=== PATIENT | male | born 1990 | race Two or more races ===

== ENCOUNTER 2017-02-24 11:04 | Inpatient (IN) | payer MEDICAID ==
[~2017-02-24] VITALS: Ht 162.6 cm; Wt 68.0 kg
[2017-02-24] VITALS (15 sets, daily range): BP systolic 102–147; BP diastolic 51–84
[2017-02-24 11:58] LABS: HEMATOCRIT 49.8 % (42.0-52.0); HEMOGLOBIN 16.2 G/DL (14.2-18.0); MEAN CORPUSCULAR VOLUME 94 FL (80-99); PLATELET COUNT 268 K/UL (150-450); RED BLOOD COUNT 5.28 M/UL (4.70-6.10); RED CELL DISTRIBUTION WIDTH 11.3 % (11.6-14.8); WHITE BLOOD COUNT 12.6 K/UL (4.8-10.8)
[2017-02-24 12:09] LABS: ALANINE AMINOTRANSFERASE 196 U/L (12-78); ALBUMIN 3.9 G/DL (3.4-5.0); ALBUMIN/GLOBULIN RATIO 0.8 (1.0-2.7); ALKALINE PHOSPHATASE 116 U/L (46-116); ANION GAP 11 mmol/L (5-15); ASPARTATE AMINO TRANSFERASE 97 U/L (15-37); BILIRUBIN,TOTAL 1.3 MG/DL (0.2-1.0); BLOOD UREA NITROGEN 7 mg/dL (7-18); CALCIUM 9.7 MG/DL (8.5-10.1); CARBON DIOXIDE 26 MMOL/L (21-32); CHLORIDE 101 MMOL/L (98-107); CREATININE 1.1 MG/DL (0.55-1.30); POTASSIUM 4.2 MMOL/L (3.5-5.1); SODIUM 138 MMOL/L (136-145)
[2017-02-24 12:15] LABS: BILIRUBIN,DIRECT 0.2 MG/DL (0.0-0.3)
[2017-02-24 12:50] LABS: APPEARANCE,URINE CLEAR; BILIRUBIN, URINE NEGATIVE (NEGATIVE); COLOR,URINE AMBER; GLUCOSE, URINE (UA) NEGATIVE (NEGATIVE); KETONES,URINE NEGATIVE (NEGATIVE); LEUKOCYTE ESTERASE ,URINE NEGATIVE (NEGATIVE); NITRITE,URINE NEGATIVE (NEGATIVE); PH,URINE 7 (4.5-8.0); PROTEIN,URINE NEGATIVE (NEGATIVE); UROBILINOGEN,URINE 4 MG/DL (0.0-1.0)
[2017-02-24] MEDS ORDERED: Zosyn 3.375gm/50ml Premix 50 ML IVPB SCH (14:00)
[2017-02-24] MEDS ORDERED: Zosyn 3.375gm inj ONE (14:01)
[2017-02-24] MEDS ORDERED: Piperacillin/Tazobactam 3.375 GM in NS 110 ML IVPB ONE (14:15)
[2017-02-24] MEDS ORDERED: NKM (14:21)
[2017-02-24] MEDS ORDERED: LR 1000ml 1,000 ML IVLG SCH ×2 (15:12→17:10)
[2017-02-24] MEDS ORDERED: Norco 7.5mg/325mg tab ORAL PRN ×2 (15:15→15:30)
[2017-02-24] MEDS ORDERED: Atropine Inj 1mg/10ml Syr IV PRN ×2 (15:15→15:35)
[2017-02-24] MEDS ORDERED: Hydromorphone 0.5mg/0.5ml inj IVP PRN ×3 (15:15→17:00)
[2017-02-24] MEDS ORDERED: Metoclopramide 10mg/2ml Inj IVP PRN ×2 (15:15→15:30)
[2017-02-24] MEDS ORDERED: oxyCODONE HCL/Acetaminophen 5/325mg ORAL PRN ×2 (15:15→15:30)
[2017-02-24] MEDS ORDERED: Midazolam 2mg/2ml Inj IVP PRN ×2 (15:15→15:45)
[2017-02-24] MEDS ORDERED: LORazepam Inj 2mg/ml 1ml IV PRN ×3 (15:15→20:45)
[2017-02-24] MEDS ORDERED: Acetaminophen (Non formulary) 100 ML IV ONE ×3 (15:15→15:45)
[2017-02-24] MEDS ORDERED: DiphenhydrAMINE 50mg/ml Inj IVP PRN ×3 (15:15→17:00)
[2017-02-24] MEDS ORDERED: Ketorolac 30mg Inj IV PRN ×3 (15:15→17:00)
[2017-02-24] MEDS ORDERED: fentaNYL 100 mcg/2 mL IV PRN ×2 (15:15→15:30)
[2017-02-24] MEDS ORDERED: Ketorolac 60mg Inj IV PRN ×2 (15:15→15:30)
[2017-02-24] MEDS ORDERED: Norco 5mg/325mg tab ORAL PRN ×3 (15:15→17:00)
[2017-02-24] MEDS ORDERED: Bupivacaine w/Epi 0.75% 30ml Vial INJ ONE (15:19)
--- NOTE | 2017-02-24 15:27 | Consultation ---
History of Present Illness General Date patient seen: Feb 24, 2017 Chief Complaint: Abdominal Pain Present Illness HPI 26 year old otherwise healthy male presented to ED complaining of worsening RLQ abdominal pain x 3 days. as per patient, he first noted some vague lower abdominal pain 3 days ago. the next morning pain had radiated to RLQ and has been there since. pain cramping in nature with mild radiation to right flank. as pain progressed he came to ED for evaluation. took ibuprofen without significant improvement. began to have nausea and emesis this morning. no prior episodes. in ED had CT which was consistent with dilated inflamed non perforated appendicitis. surgery called. Allergies: Coded Allergies: No Known Allergies (Unverified , 02/24/17) Medication History Scheduled No Known Medications* (NKM - No Known Medications*), 0 ., (Reported) Patient History History Provided By: Patient Healthcare decision maker Resuscitation status Advanced Directive on File Past Medical/Surgical History Past Medical/Surgical History: (1) Acute appendicitis with localized peritonitis (2) Abdominal pain Review of Systems All Other Systems: negative except mentioned in HPI Physical Exam General Appearance: no apparent distress, alert Lines, tubes and drains: peripheral HEENT: normocephalic, mucous membranes moist, PERRL Neck: normal inspection Respiratory/Chest: normal breath sounds, no respiratory distress, no accessory muscle use Cardiovascular/Chest: normal peripheral pulses, normal rate, regular rhythm Abdomen: other - soft, non distended, tender in RLQ with rebound and guarding, focal RLQ peritonitis Extremities: normal inspection Skin Exam: normal pigmentation Neurologic: alert, oriented x 3 Last 24 Hour Vital Signs Date Time Temp Pulse Resp B/P (MAP) Pulse Ox O2 Delivery O2 Flow Rate FiO2 02/24/17 15:20 98.4 72 17 118/68 99 Room Air 02/24/17 15:07 72 17 118/68 99 Room Air 02/24/17 13:00 98.4 80 17 119/72 99 Room Air 02/24/17 11:52 98.4 88 18 121/73 99 Room Air 02/24/17 11:13 98.4 88 18 121/73 99 Room Air Laboratory Tests Test 02/24/17 11:23 02/24/17 11:30 Urine Color Lor Urine Appearance Clear Urine pH 7 (4.5-8.0) Urine Specific [place] 1.010 (1.005-1.035) Urine Protein Negative (NEGATIVE) Urine Glucose (UA) Negative (NEGATIVE) Urine Ketones Negative (NEGATIVE) Urine Occult Blood Negative (NEGATIVE) Urine Nitrite Negative (NEGATIVE) Urine Bilirubin Negative (NEGATIVE) Urine Ictotest Negative Urine Urobilinogen 4 MG/DL (0.0-1.0) H Urine Leukocyte Esterase Negative (NEGATIVE) White Blood Count 12.6 K/UL (4.8-10.8) H Red Blood Count 5.28 M/UL (4.70-6.10) Hemoglobin 16.2 G/DL (14.2-18.0) Hematocrit 49.8 % (42.0-52.0) Mean Corpuscular Volume 94 FL (80-99) Mean Corpuscular Hemoglobin 30.7 PG (27.0-31.0) Mean Corpuscular Hemoglobin Concent 32.5 G/DL (32.0-36.0) Red Cell Distribution Width 11.3 % (11.6-14.8) L Platelet Count 268 K/UL (150-450) Mean Platelet Volume 7.0 FL (6.5-10.1) Neutrophils (%) (Auto) % (45.0-75.0) Lymphocytes (%) (Auto) % (20.0-45.0) Monocytes (%) (Auto) % (1.0-10.0) Eosinophils (%) (Auto) % (0.0-3.0) Basophils (%) (Auto) % (0.0-2.0) Differential Total Cells Counted 100 Neutrophils % (Manual) 89 % (45-75) H Lymphocytes % (Manual) 6 % (20-45) L Monocytes % (Manual) 5 % (1-10) Eosinophils % (Manual) 0 % (0-3) Basophils % (Manual) 0 % (0-2) Band Neutrophils 0 % (0-8) Platelet Estimate Adequate Platelet Morphology Normal Prothrombin Time 10.1 SEC (9.30-11.50) Prothromb Time International Ratio 1.0 (0.9-1.1) Activated Partial Thromboplast Time 18 SEC (23-33) L Sodium Level 138 MMOL/L (136-145) Potassium Level 4.2 MMOL/L (3.5-5.1) Chloride Level 101 MMOL/L (98-107) Carbon Dioxide Level 26 MMOL/L (21-32) Anion Gap 11 mmol/L (5-15) Blood Urea Nitrogen 7 mg/dL (7-18) Creatinine 1.1 MG/DL (0.55-1.30) Estimat Glomerular Filtration Rate > 60 mL/min (>60) Glucose Level 175 MG/DL (74-106) H Calcium Level 9.7 MG/DL (8.5-10.1) Total Bilirubin 1.3 MG/DL (0.2-1.0) H Direct Bilirubin 0.2 MG/DL (0.0-0.3) Aspartate Amino Transf (AST/SGOT) 97 U/L (15-37) H Alanine Aminotransferase (ALT/SGPT) 196 U/L (12-78) H Alkaline Phosphatase 116 U/L (46-116) Total Protein 8.6 G/DL (6.4-8.2) H Albumin 3.9 G/DL (3.4-5.0) Globulin 4.7 g/dL Albumin/Globulin Ratio 0.8 (1.0-2.7) L Lipase 88 U/L (73-393) Height (Feet): 5 Height (Inches): 4.00 Weight (Pounds): 150 Medications Current Medications Medications (Trade) Dose Ordered Sig/Madai Route PRN Reason Start Time Stop Time Status Last Admin Dose Admin Acetaminophen 100 ml @ 400 mls/hr NOW ONCE IV 02/24/17 15:15 02/24/17 15:29 UNV Acetaminophen/ Hydrocodone Bitart ([place] 5/325) 1 tab Q1H PRN ORAL Mild Pain (Pain Scale 1-3) 02/24/17 15:15 UNV Acetaminophen/ Hydrocodone Bitart ([place] 7.5/325) 1 ea Q1H PRN ORAL Moderate Pain (Pain Scale 4-6) 02/24/17 15:15 UNV Al Hydroxide/Mg Hydroxide (Mylanta) 15 ml Q1H PRN ORAL gi upset 02/24/17 15:15 UNV Atropine Sulfate (Atropine) 0.5 mg Q5M PRN IV HR <40 02/24/17 15:15 UNV Diphenhydramine HCl (Benadryl) 25 mg Q15M PRN IVP Itching 02/24/17 15:15 UNV Fentanyl Citrate (Sublimaze 100 mcg/2 mL) 25 mcg Q10M PRN IV Moderate Pain (Pain Scale 4-6) 02/24/17 15:15 UNV Hydralazine HCl (Apresoline) 5 mg Q30M PRN IV SBP>160 / DBP>90 02/24/17 15:15 UNV Hydromorphone HCl (Dilaudid) 0.5 mg Q15M PRN IVP Severe Pain (Pain Scale 7-10) 02/24/17 15:15 UNV Ketorolac Tromethamine (Toradol 30mg) 15 mg Q1H PRN IV Moderate Breakthru Pain (5-7) 02/24/17 15:15 UNV Ketorolac Tromethamine (Toradol) 60 mg Q1H PRN IV Severe Breakthru Pain (>7) 02/24/17 15:15 UNV Lactated Ringer's 1,000 ml @ 10 mls/hr Q24H IVLG 02/24/17 15:12 02/24/17 17:11 UNV Lorazepam (Ativan 2mg/ml 1ml) 1 mg Q15M PRN IV For Anxiety 02/24/17 15:15 UNV Metoclopramide HCl (Reglan) 10 mg Q1H PRN IVP Nausea & Vomiting 02/24/17 15:15 UNV Midazolam HCl (Versed 2mg/2ml vial) 1 mg Q15M PRN IVP For Anxiety 02/24/17 15:15 UNV Ondansetron HCl (Zofran) 4 mg Q1H PRN IVP Nausea & Vomiting 02/24/17 15:15 UNV Oxycodone/ Acetaminophen (Percocet 5-325) 1 tab Q1H PRN ORAL Severe Pain (Pain Scale 7-10) 02/24/17 15:15 UNV Sodium Chloride 1,000 ml @ 100 mls/hr Q10H ONCE IV 02/24/17 11:45 02/24/17 21:44 02/24/17 11:52 Assessment/Plan Problem List: (1) Acute appendicitis with localized peritonitis Assessment & Plan: 26M with acute appendicitis. Afebrile, HD stable, leukocytosis of 12k, CT with dilated inflamed appendix but no signs of perforation, exam with focal RLQ peritonitis. -To OR for lap vs open appendectomy NPO, IV fluids, IV Abx ICD Codes: K35.3 - Acute appendicitis with localized peritonitis SNOMED: [id number] Status: stable WiltonoramelanieFarzana thomasya Feb 24, 2017 15:27
--- NOTE | 2017-02-24 15:28 | Pre-Procedure Note/Attestation ---
Pre-Procedure Note/Attestation Complete Prior to Procedure Planned Procedure: not applicable Procedure Narrative: acute appendicitis Indications for Procedure Pre-Operative Diagnosis: laparoscopic appendectomy, possible open Attestation I attest that I discussed the nature of the procedure; its benefits; risks and complications; and alternatives (and the risks and benefits of such alternatives ), prior to the procedure, with the patient (or the patient's legal office machines sales representative). I attest that, if there was a reasonable possibility of needing a blood transfusion, the patient (or the patient's legal office machines sales representative) was given the [facility] standardized written summary, pursuant to the Leo Jeff Blood Safety Act ([place] Health and Safety Code # 1645, as amended). I attest that I re-evaluated the patient just prior to the surgery and that there has been no change in the patient's H&P, except as documented below: Aren Griffin Feb 24, 2017 15:28
--- NOTE | 2017-02-24 15:28 | Pre-Procedure Note/Attestation ---
Pre-Procedure Note/Attestation Complete Prior to Procedure Planned Procedure: not applicable Procedure Narrative: acute appendicitis Indications for Procedure Pre-Operative Diagnosis: laparoscopic appendectomy, possible open Attestation I attest that I discussed the nature of the procedure; its benefits; risks and complications; and alternatives (and the risks and benefits of such alternatives ), prior to the procedure, with the patient (or the patient's legal branch customer service representative). I attest that, if there was a reasonable possibility of needing a blood transfusion, the patient (or the patient's legal branch customer service representative) was given the [facility] standardized written summary, pursuant to the Leo Jeff Blood Safety Act ([place] Health and Safety Code # 1645, as amended). I attest that I re-evaluated the patient just prior to the surgery and that there has been no change in the patient's H&P, except as documented below: Aren Griffin Feb 24, 2017 15:28
--- NOTE | 2017-02-24 15:28 | Pre-Procedure Note/Attestation ---
Pre-Procedure Note/Attestation Complete Prior to Procedure Planned Procedure: not applicable Procedure Narrative: acute appendicitis Indications for Procedure Pre-Operative Diagnosis: laparoscopic appendectomy, possible open Attestation I attest that I discussed the nature of the procedure; its benefits; risks and complications; and alternatives (and the risks and benefits of such alternatives ), prior to the procedure, with the patient (or the patient's legal construction representative). I attest that, if there was a reasonable possibility of needing a blood transfusion, the patient (or the patient's legal construction representative) was given the [facility] standardized written summary, pursuant to the Leo Jeff Blood Safety Act ([place] Health and Safety Code # 1645, as amended). I attest that I re-evaluated the patient just prior to the surgery and that there has been no change in the patient's H&P, except as documented below: Aren Grififn Feb 24, 2017 15:28
[2017-02-24] MEDS ORDERED: Lidocaine 1% MPF 10mg/ml 5ml ONE (15:30)
[2017-02-24] MEDS ORDERED: Sterile Water Irrig 1000ml IRRIG ONE (15:30)
[2017-02-24] MEDS ORDERED: Glycopyrrolate 0.2mg/ml 1ml Vial ONE (15:30)
[2017-02-24] MEDS ORDERED: Zemuron 50mg/5ml Inj IV ONE (15:30)
[2017-02-24] MEDS ORDERED: LR 1000ml ONE (15:30)
[2017-02-24] MEDS ORDERED: Neostigmine 1mg/ml 10ml Inj ONE (15:30)
[2017-02-24] MEDS ORDERED: fentaNYL 100 mcg/2 mL IV ONE (15:30)
[2017-02-24] MEDS ORDERED: Dexamethasone 4mg/ml vial ONE (15:30)
[2017-02-24] MEDS ORDERED: NS Irrig 1000ml ONE (15:30)
[2017-02-24] MEDS ORDERED: Propofol 200mg/20ml IV ONE (15:30)
[2017-02-24] MEDS ORDERED: Alfentanil 2ml Inj ONE (15:30)
--- NOTE | 2017-02-24 15:48 | Anethesia Preoperative Eval ---
Anesthesia Pre-op PMH/ROS General Date of Evaluation: Feb 24, 2017 Anesthesiologist: Shira ASA Score: ASA 1 - Emergency Mallampati Score Class I : Soft palate, uvula, fauces, pillars visible Class II: Soft palate, uvula, fauces visible Class III: Soft palate, base of uvula visible Class IV: Only hard plate visible Mallampati Classification: Class I Surgeon: Gaby Diagnosis: Acute Appendicitis Surgical Procedure: Laparoscopic Appendectomy Anesthesia History: none Social History: alcohol use Family History: no anesthesia problems Allergies: Coded Allergies: No Known Allergies (Unverified , 02/24/17) Medications: see eMAR Anesthesia Pre-op Phys. Exam Physician Exam Last Vital Signs Date Time Temp Pulse Resp B/P (MAP) Pulse Ox O2 Delivery O2 Flow Rate FiO2 02/24/17 15:20 98.4 72 17 118/68 99 Room Air Constitutional: NAD Neurologic: CN 2-12 intact Cardiovascular: RRR Respiratory: CTA Gastrointestinal: S/NT/ND Airway Exam Mallampati Score: Class I MO: full ROM: full Teeth: intact Anesthesia Pre-op A/P Labs Hematology Test 02/24/17 11:30 White Blood Count 12.6 K/UL (4.8-10.8) H Red Blood Count 5.28 M/UL (4.70-6.10) Hemoglobin 16.2 G/DL (14.2-18.0) Hematocrit 49.8 % (42.0-52.0) Mean Corpuscular Volume 94 FL (80-99) Mean Corpuscular Hemoglobin 30.7 PG (27.0-31.0) Mean Corpuscular Hemoglobin Concent 32.5 G/DL (32.0-36.0) Red Cell Distribution Width 11.3 % (11.6-14.8) L Platelet Count 268 K/UL (150-450) Mean Platelet Volume 7.0 FL (6.5-10.1) Neutrophils (%) (Auto) % (45.0-75.0) Lymphocytes (%) (Auto) % (20.0-45.0) Monocytes (%) (Auto) % (1.0-10.0) Eosinophils (%) (Auto) % (0.0-3.0) Basophils (%) (Auto) % (0.0-2.0) Differential Total Cells Counted 100 Neutrophils % (Manual) 89 % (45-75) H Lymphocytes % (Manual) 6 % (20-45) L Monocytes % (Manual) 5 % (1-10) Eosinophils % (Manual) 0 % (0-3) Basophils % (Manual) 0 % (0-2) Band Neutrophils 0 % (0-8) Platelet Estimate Adequate Platelet Morphology Normal Coagulation Test 02/24/17 11:30 Prothrombin Time 10.1 SEC (9.30-11.50) Prothromb Time International Ratio 1.0 (0.9-1.1) Activated Partial Thromboplast Time 18 SEC (23-33) L Chemistry Test 02/24/17 11:30 Sodium Level 138 MMOL/L (136-145) Potassium Level 4.2 MMOL/L (3.5-5.1) Chloride Level 101 MMOL/L (98-107) Carbon Dioxide Level 26 MMOL/L (21-32) Anion Gap 11 mmol/L (5-15) Blood Urea Nitrogen 7 mg/dL (7-18) Creatinine 1.1 MG/DL (0.55-1.30) Estimat Glomerular Filtration Rate > 60 mL/min (>60) Glucose Level 175 MG/DL (74-106) H Calcium Level 9.7 MG/DL (8.5-10.1) Total Bilirubin 1.3 MG/DL (0.2-1.0) H Direct Bilirubin 0.2 MG/DL (0.0-0.3) Aspartate Amino Transf (AST/SGOT) 97 U/L (15-37) H Alanine Aminotransferase (ALT/SGPT) 196 U/L (12-78) H Alkaline Phosphatase 116 U/L (46-116) Total Protein 8.6 G/DL (6.4-8.2) H Albumin 3.9 G/DL (3.4-5.0) Globulin 4.7 g/dL Albumin/Globulin Ratio 0.8 (1.0-2.7) L Lipase 88 U/L (73-393) Risk Assessment & Plan Assessment: ASA 1E Plan: GA, BIS, Glidescope Status Change Before Surgery: No Pre-Antibiotics Dru Gram Ancef IV Given Within 1 Hr of Incision: Yes Time Given: 15:53 Oleksandr Silva MD Feb 24, 2017 15:48
[2017-02-24] MEDS ORDERED: NS Irrig 1000ml IRRIG ONE (16:01)
--- NOTE | 2017-02-24 16:01 | Emergency Room Report ---
History of Present Illness General Chief Complaint: Abdominal Pain Source: Patient Present Illness HPI Patient's 26-year-old male who presented after increased abdominal pain and vomiting for the past several days. Patient had gradual onset of symptoms. He had worsening pain today. Patient had subjective fever and chills. He did having increased pain with movement. He reports some recent alcohol use. Patient states his last meal was approximately immediately prior. Allergies: Coded Allergies: No Known Allergies (Unverified , 02/24/17) Patient History Reviewed Nursing Documentation: PMH: Agreed, PSxH: Agreed Nursing Documentation-PMH Past Medical History: No Stated History Review of Systems All Other Systems: negative except mentioned in HPI Physical Exam Vital Signs Date Time Temp Pulse Resp B/P (MAP) Pulse Ox O2 Delivery O2 Flow Rate FiO2 02/24/17 11:13 98.4 88 18 121/73 99 Room Air Sp02 EP Interpretation: reviewed, normal General Appearance: normal inspection, well appearing, no apparent distress, alert, GCS 15 Head: atraumatic ENT: normal ENT inspection, hearing grossly normal, normal voice Neck: normal inspection, full range of motion, supple, no bony tend Respiratory: normal inspection, lungs clear, normal breath sounds, no respiratory distress, no retraction, no wheezing Cardiovascular #1: regular rate, rhythm, no edema Gastrointestinal: soft, no guarding, tenderness - guarding rebound Genitourinary: no CVA tenderness Musculoskeletal: normal inspection, back normal, normal range of motion Neurologic: normal inspection, alert, oriented x3, responsive, product test specialist III-XII nml as tested, speech normal Psychiatric: normal inspection, judgement/insight normal, mood/affect normal Skin: normal inspection, normal color, no rash Medical Decision Making Diagnostic Impression: Primary Impression: Acute appendicitis with localized peritonitis ER Course Patient presented for abdominal pain. Differential diagnoses included ischemic bowel, appendicitis, perforated viscus, abdominal aortic aneurysm, inferior myocardial infarction, viral gastroenteritis. Because of complexity of patient' s case laboratory testing and imaging studies were ordered. The patient was given IV antibiotics as well as IV antiemetics. A CT imaging of the abdomen pelvis showed a radiology showed evidence of acute appendicitis. The patient was discussed with Dr. Griffin for surgical consult. Dr. Mane Rudolph was contacted for Dr. Bagley for inpatient managment. Labs Test 02/24/17 11:23 11/4/17 11:30 Urine Color Lor Urine Appearance Clear Urine pH 7 (4.5-8.0) Urine Specific [place] 1.010 (1.005-1.035) Urine Protein Negative (NEGATIVE) Urine Glucose (UA) Negative (NEGATIVE) Urine Ketones Negative (NEGATIVE) Urine Occult Blood Negative (NEGATIVE) Urine Nitrite Negative (NEGATIVE) Urine Bilirubin Negative (NEGATIVE) Urine Ictotest Negative Urine Urobilinogen 4 MG/DL (0.0-1.0) Urine Leukocyte Esterase Negative (NEGATIVE) White Blood Count 12.6 K/UL (4.8-10.8) Red Blood Count 5.28 M/UL (4.70-6.10) Hemoglobin 16.2 G/DL (14.2-18.0) Hematocrit 49.8 % (42.0-52.0) Mean Corpuscular Volume 94 FL (80-99) Mean Corpuscular Hemoglobin 30.7 PG (27.0-31.0) Mean Corpuscular Hemoglobin Concent 32.5 G/DL (32.0-36.0) Red Cell Distribution Width 11.3 % (11.6-14.8) Platelet Count 268 K/UL (150-450) Mean Platelet Volume 7.0 FL (6.5-10.1) Neutrophils (%) (Auto) % (45.0-75.0) Lymphocytes (%) (Auto) % (20.0-45.0) Monocytes (%) (Auto) % (1.0-10.0) Eosinophils (%) (Auto) % (0.0-3.0) Basophils (%) (Auto) % (0.0-2.0) Differential Total Cells Counted 100 Neutrophils % (Manual) 89 % (45-75) Lymphocytes % (Manual) 6 % (20-45) Monocytes % (Manual) 5 % (1-10) Eosinophils % (Manual) 0 % (0-3) Basophils % (Manual) 0 % (0-2) Band Neutrophils 0 % (0-8) Platelet Estimate Adequate Platelet Morphology Normal Prothrombin Time 10.1 SEC (9.30-11.50) Prothromb Time International Ratio 1.0 (0.9-1.1) Activated Partial Thromboplast Time 18 SEC (23-33) Sodium Level 138 MMOL/L (136-145) Potassium Level 4.2 MMOL/L (3.5-5.1) Chloride Level 101 MMOL/L (98-107) Carbon Dioxide Level 26 MMOL/L (21-32) Anion Gap 11 mmol/L (5-15) Blood Urea Nitrogen 7 mg/dL (7-18) Creatinine 1.1 MG/DL (0.55-1.30) Estimat Glomerular Filtration Rate > 60 mL/min (>60) Glucose Level 175 MG/DL (74-106) Calcium Level 9.7 MG/DL (8.5-10.1) Total Bilirubin 1.3 MG/DL (0.2-1.0) Direct Bilirubin 0.2 MG/DL (0.0-0.3) Aspartate Amino Transf (AST/SGOT) 97 U/L (15-37) Alanine Aminotransferase (ALT/SGPT) 196 U/L (12-78) Alkaline Phosphatase 116 U/L (46-116) Total Protein 8.6 G/DL (6.4-8.2) Albumin 3.9 G/DL (3.4-5.0) Globulin 4.7 g/dL Albumin/Globulin Ratio 0.8 (1.0-2.7) Lipase 88 U/L (73-393) Last Vital Signs Date Time Temp Pulse Resp B/P (MAP) Pulse Ox O2 Delivery O2 Flow Rate FiO2 02/24/17 15:20 98.4 72 17 118/68 99 Room Air Status: unchanged Disposition: ADMITTED INPATIENT Condition: Serious Referrals: NOT CHOSEN IPA/,REFERRING (PCP) Dereje Campbell Feb 24, 2017 16:01
--- NOTE | 2017-02-24 16:19 | Immediate Post-Op Evaluation ---
Immediate Post-Op Evalulation Immediate Post-Op Evalulation Procedure: Laparoscopic Appendectomy Date of Evaluation: Feb 24, 2017 Time of Evaluation: 17:02 IV Fluids: 600 LR Blood Products: 0 Estimated Blood Loss: 25 Urinary Output: 0 Blood Pressure Systolic: 147 Blood Pressure Diastolic: 68 Pulse Rate: 108 Respiratory Rate: 18 O2 Sat by Pulse Oximetry: 96 - Pt Desated to 20's, Mask vent 120 mcg Narcan to RX Temperature (Fahrenheit): 100 Pain Score (1-10): 3 Nausea: No Vomiting: No Complications Desat to 20's, Mask vent and 120 mcg Narcan to rx, CXR taken, Lungs were somewhat congested. RA sat was 97 preop Patient Status: awake, reacts, patent, extubated, none Hydration Status: adequate Dru Gram Ancef IV Given Within 1 Hr of Incision: Yes Time Given: 15:53 Oleksandr Silva MD Feb 24, 2017 16:19
--- NOTE | 2017-02-24 16:20 | 48 Hour Post Anesthesia Eval ---
Post Anesthesia Evaluation Procedure: Laparoscopic Appendectomy Date of Evaluation: Feb 24, 2017 Time of Evaluation: 19:22 Blood Pressure Systolic: 112 0: 66 Pulse Rate: 92 Respiratory Rate: 18 Temperature (Fahrenheit): 98.7 O2 Sat by Pulse Oximetry: 97 Airway: patent Nausea: No Vomiting: No Pain Intensity: 3 Hydration Status: adequate Cardiopulmonary Status: Stable Mental Status/LOC: patient returned to baseline Follow-up Care/Observations: 0 Post-Anesthesia Complications: 0 Follow-up care needed: N/A Oleksandr Silva MD Feb 24, 2017 16:20
--- NOTE | 2017-02-24 16:53 | Brief Operative Note ---
Immediate Post Operative Note Operative Note Pre-op Diagnosis: laparoscopic appendectomy, possible open Procedure: laparoscopic appendectomy Post-op Diagnosis: acute appendicitis Post-op Diagnosis: same as pre-op Findings: consistent w/pre-op dx studies Surgeon: kyle Anesthesiologist: Saad Anesthesia: general Specimen: yes Complications: none Condition: stable Fluids: see records Estimated Blood Loss: minimal Drains: none Implant(s) used?: No Aren Griffin Feb 24, 2017 16:53
[2017-02-24] MEDS ORDERED: Milk of Magnesia 30ml Ud ORAL PRN (17:00)
[2017-02-24] MEDS ORDERED: Norco 10mg/325mg tab ORAL PRN (17:00)
[2017-02-24] MEDS ORDERED: HYDROmorphone 1mg/ml Carpuject IVP PRN (17:00)
--- NOTE | 2017-02-24 18:45 | Operative Note - Dictated ---
DATE OF OPERATION: 02/24/2017 PREOPERATIVE DIAGNOSIS: Acute appendicitis. POSTOPERATIVE DIAGNOSIS: Acute appendicitis. OPERATION PERFORMED: Laparoscopic appendectomy. ATTENDING SURGEON: Aren Griffin M.D. ANESTHESIOLOGIST: Oleksandr Silva M.D. 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 ESTIMATED BLOOD LOSS: Minimal. IV FLUIDS: Please see anesthesia records. SPECIMENS: Appendix sent to pathology for review. COMPLICATIONS: None. WOUND CLASSIFICATION: Class 2. ANTIBIOTICS: Ancef IV given one hour prior to cut time. COUNTS: Sponge and needle count correct x2. DRAINS: None. INDICATIONS FOR PROCEDURE: This is a 26-year-old male, who presented to the emergency department at [facility] complaining of worsening right lower quadrant abdominal pain for three days. The patient states that CT and pelvis was performed and consistent with acute and perforated appendicitis. On examination, the patient had focal right lower quadrant tenderness/peritonitis. The patient was afebrile and hemodynamically stable with leukocytosis of 12,000. Surgery was indicated. Risks, benefits, and alternatives were discussed with the patient in detail prior to entering the operating room. Consent was signed and in chart. OPERATIVE NOTE: The patient was taken to the operating room and placed on the operating table in supine position with bilateral arms out. All bony prominences were well padded with gel pads. SCDs were placed. No Ackerman catheter was inserted given the patient had voided just prior to entering the operating suite. Intravenous Ancef was given one hour prior to cut time. General anesthesia was induced and the patient was intubated. The abdomen was then clipped, prepped, and draped in standard surgical fashion. We began by making an umbilical incision using a fresh #11 scalpel. Incision was carried down to the fascia, which was elevated and incised. Entry into the abdomen was obtained using the open Mainor technique without complication. The Mainor trocar was inserted and the abdomen was insufflated with 12 to 15 mmHg. The patient tolerated the insufflation well. The laparoscope was entered and the abdomen was inspected. Upon initial inspection, the right lobe of the liver was noted to have some blunted edges and micronodular changes. The left lower quadrant was otherwise normal and in the right lower quadrant, there was omentum covering the intestines. The patient was placed in the Trendelenburg position with the left side down. Secondary trocars were placed under direct visualization in the following locations, first beginning with a left lower quadrant 12 mm trocar followed by a 5 mm suprapubic trocar. The trocars were inserted under direct visualization without complication. The laparoscopic graspers were then used to locate and identify the appendix. The appendix was located and identified in the right lower quadrant with some adhesive processes around it and a hemorrhagic tip. No perforation or localized abscess was noted. The base of the appendix was identified. The base of the appendix was elevated and directed towards the pelvis giving us a good view of the base the appendix, cecum, and the surrounding structures. A laparoscopic Cindi dissector was used to make a window at the base of the appendix. A laparoscopic linear stapler was then used to divide the appendix at the base without complication. A second laparoscopic linear stapler with a vascular load was then used to divide the mesoappendix. Once this was completed successfully, the appendix was then freed and placed in endoscopic retrieval bag and removed through the left lower quadrant port. The abdomen was then reinspected and any fluid was suctioned with minimal irrigation out of the right lower quadrant and pelvis. The base of the appendix staple line and the mesoappendix staple line were evaluated and noted to be hemostatic and satisfactory. At this time, we began the conclusion of our procedure. Secondary trocars were removed under direct visualization without complication. The abdomen was desufflated and Mainor trocar was removed. The umbilical and left lower quadrant port site fascias were closed using a #0 Vicryl suture. The remaining skin incisions were closed using a 4-0 Monocryl subcuticular suture. The wounds were irrigated and cleansed. Steri-Strips and dressings were then placed. The patient was then extubated and taken to the postanesthetic care unit in stable condition. Aren Griffin M.D. DR: KEVIN JOB#: [id number] CC: RICHIE
[2017-02-24] MEDS ORDERED: LORazepam Inj 2mg/ml 1ml IM PRN (20:45)
[2017-02-24] MEDS: Docusate 100mg cap ORAL SCH (21:00)
[2017-02-25] VITALS: BP 103/66
[2017-02-25] MEDS: ceFAZolin sod 2 GM in D5W 55 ML IV SCH ×2 (01:28→08:04)
[2017-02-25 04:00] VITALS: BP 114/62
[2017-02-25 08:11] VITALS: BP 112/61
[2017-02-25] MEDS: Docusate 100mg cap ORAL SCH (08:26)
[2017-02-25] MEDS ORDERED: Heparin 5000 units/ml inj SUBQ SCH (09:00)
[2017-02-25] MEDS ORDERED: Tubing IV Secondary IV ONE (09:15)
[2017-02-25] MEDS ORDERED: NS 275ml ONE (09:15)
--- NOTE | 2017-02-25 11:09 | Diagnostic Imaging Report ---
Indication: Cough Technique: CHEST 1 VIEW Comparison:None Findings: The heart is normal in size. There is bilateral perihilar airspace disease. No pleural fluid. The bones are unremarkable. Impression: Findings consistent with pulmonary edema or pneumonia bilaterally. The above report is concordant with preliminary reading by [employer] .
[2017-02-25 11:10] LABS: BASOPHILS % (AUTO) 0.3 % (0.0-2.0); EOSINOPHILS % (AUTO) 0.1 % (0.0-3.0); HEMATOCRIT 39.1 % (42.0-52.0); HEMOGLOBIN 13.2 G/DL (14.2-18.0); LYMPHOCYTES % (AUTO) 10.4 % (20.0-45.0); MEAN CORPUSCULAR VOLUME 94 FL (80-99); MONOCYTES % (AUTO) 10.7 % (1.0-10.0); NEUTROPHILS % (AUTO) 78.5 % (45.0-75.0); PLATELET COUNT 212 K/UL (150-450); RED BLOOD COUNT 4.17 M/UL (4.70-6.10); RED CELL DISTRIBUTION WIDTH 11.3 % (11.6-14.8); WHITE BLOOD COUNT 12.8 K/UL (4.8-10.8)
--- NOTE | 2017-02-25 11:30 | General Progress Note ---
Progress Note Progress Note Surgery: patient seen and examined at bedside. no acute events. doing well since surgery. states that abdominal pain has resolved and that he just has some minor incisional pain mainly around the umbilicus. no n/v/f/c. tolerating oral diet. ambulatory. had small BM this morning. passing flatus. Afebrile, HD stable, exam benign, recovering. abdomen soft, nt/nd, bs+, incisions c/d/i. -okay to d/c from surgical standpoint -diet as tolerated -ambulate and activity as tolerated. no heavy lifting > 15lbs for 4 weeks -Rx written -follow up with me in 1 week call [phone] for appointment -okay to shower. okay to remove dressings tomorrow. leave steristrips in place until next week. Aren Griffin Feb 25, 2017 11:30
--- NOTE | 2017-02-25 11:30 | General Progress Note ---
Progress Note Progress Note Surgery: patient seen and examined at bedside. no acute events. doing well since surgery. states that abdominal pain has resolved and that he just has some minor incisional pain mainly around the umbilicus. no n/v/f/c. tolerating oral diet. ambulatory. had small BM this morning. passing flatus. Afebrile, HD stable, exam benign, recovering. abdomen soft, nt/nd, bs+, incisions c/d/i. -okay to d/c from surgical standpoint -diet as tolerated -ambulate and activity as tolerated. no heavy lifting > 15lbs for 4 weeks -Rx written -follow up with me in 1 week call [phone] for appointment -okay to shower. okay to remove dressings tomorrow. leave steristrips in place until next week. Aren Griffin Feb 25, 2017 11:30
--- NOTE | 2017-02-25 11:30 | General Progress Note ---
Progress Note Progress Note Surgery: patient seen and examined at bedside. no acute events. doing well since surgery. states that abdominal pain has resolved and that he just has some minor incisional pain mainly around the umbilicus. no n/v/f/c. tolerating oral diet. ambulatory. had small BM this morning. passing flatus. Afebrile, HD stable, exam benign, recovering. abdomen soft, nt/nd, bs+, incisions c/d/i. -okay to d/c from surgical standpoint -diet as tolerated -ambulate and activity as tolerated. no heavy lifting > 15lbs for 4 weeks -Rx written -follow up with me in 1 week call [phone] for appointment -okay to shower. okay to remove dressings tomorrow. leave steristrips in place until next week. Aren Griffin Feb 25, 2017 11:30
[2017-02-25 11:37] LABS: ANION GAP 7 mmol/L (5-15); BLOOD UREA NITROGEN 14 mg/dL (7-18); CALCIUM 8.6 MG/DL (8.5-10.1); CARBON DIOXIDE 28 MMOL/L (21-32); CHLORIDE 101 MMOL/L (98-107); POTASSIUM 3.9 MMOL/L (3.5-5.1); SODIUM 136 MMOL/L (136-145)
--- NOTE | 2017-02-25 11:40 | History and Physical ---
History of Present Illness General Date patient seen: Feb 25, 2017 Reason for Hospitalization: Abdominal Pain Present Illness HPI 26 yo M w/o sig PMHx who presented to the ED w/ 3 days of progressive RLQ abdominal pain. In the ED pt found to have leukocytosis and peritoneal sings on physical exam. CT A/P confirmed non perforated appendicitis and pt was taken urgently to the OR for laparoscopic appendectomy. Pt tolerated the operation well. He is currently POD 1. Pain is well controlled. Pt is ambulatory. Tolerating PO. Allergies: Coded Allergies: No Known Allergies (Unverified , 02/24/17) Medication History Scheduled No Known Medications* (NKM - No Known Medications*), 0 ., (Reported) Sennosides/Docusate Sodium (Senna-S Tablet), 1 EACH PO BID, (Reported) Scheduled PRN Hydrocodone Bit/Acetaminophen 5-325* ([place] 5-325*), 1 TAB ORAL Q6H PRN for For Pain, (Reported) Patient History History Provided By: Patient, Medical Record Healthcare decision maker Resuscitation status Full Code Advanced Directive on File Review of Systems ROS Narrative CONSTITUTIONAL: No weight loss, fever, chills, weakness or fatigue. HEENT: Eyes: No visual loss, blurred vision, double vision or yellow sclerae. Ears, Nose, Throat: No hearing loss, sneezing, congestion, runny nose or sore throat. SKIN: No rash or itching. CARDIOVASCULAR: No chest pain, chest pressure or chest discomfort. No palpitations or edema. RESPIRATORY: No shortness of breath, cough or sputum. GASTROINTESTINAL: No anorexia, nausea, vomiting or diarrhea. + appropriate post op abd pain. NEUROLOGICAL: No headache, dizziness, syncope, paralysis, ataxia, numbness or tingling in the extremities. No change in bowel or bladder control. MUSCULOSKELETAL: No muscle, back pain. No joint pain or stiffness. HEMATOLOGIC: No anemia, bleeding or bruising. LYMPHATICS: No enlarged nodes. No history of splenectomy. PSYCHIATRIC: No history of depression or anxiety. ENDOCRINOLOGIC: No reports of sweating, cold or heat intolerance. No polyuria or polydipsia. ALLERGIES: No history of asthma, hives, eczema or rhinitis. Physical Exam Physical Exam Narrative General: Well appearing, in no acute distress, cooperative and alert Head: Normocephalic, without obvious abnormality, atraumatic. Eyes: Conjunctivae/corneas clear. PERRL, EOMs intact. No scleral icterus present Throat: Lips, mucosa, and tongue normal. Teeth and gums normal. Neck: No carotid bruits bilaterally, no jugular venous distention, no hepatojugular reflux, supple, symmetrical, trachea midline Lungs: Clear to auscultation bilaterally. Chest wall: No tenderness or deformity. Heart: Regular rate and rhythm, normal S1 and S2, No murmurs/gallops/rubs Abdomen: Soft, non-tender, non-distended, normoactive bowel sounds. No masses, or hepatosplenomegaly. incision sites CDI. Extremities: No clubbing, cyanosis, edema Pulses: 2+ and symmetric all extremities. Skin: No rashes, excoriations Neurologic: CNII-XII intact. Normal strength and sensation throughout. Last 24 Hour Vital Signs Date Time Temp Pulse Resp B/P (MAP) Pulse Ox O2 Delivery O2 Flow Rate FiO2 02/25/17 08:11 97.4 66 18 112/61 96 Nasal Cannula 3.0 02/25/17 07:00 Room Air 21 02/25/17 04:00 98.1 72 18 114/62 97 Nasal Cannula 3.0 02/25/17 00:00 97.3 74 16 103/66 98 Nasal Cannula 2.0 02/24/17 20:26 Nasal Cannula 3.0 32 02/24/17 20:00 97.7 78 18 103/72 95 Nasal Cannula 2.0 02/24/17 18:20 99.3 81 102/58 Nasal Cannula 3.0 02/24/17 18:00 98.6 92 17 107/66 95 Nasal Cannula 3.0 02/24/17 17:45 83 17 110/57 95 Nasal Cannula 3.0 02/24/17 17:30 95 15 114/51 95 Nasal Cannula 3.0 02/24/17 17:18 101 18 104/66 95 Simple Mask 15.0 02/24/17 17:14 92 18 97 02/24/17 17:13 108 18 96 02/24/17 17:08 105 23 111/58 95 Simple Mask 15.0 02/24/17 17:03 99 23 104/64 96 Simple Mask 15.0 02/24/17 16:58 100.0 109 23 125/63 93 Simple Mask 15.0 02/24/17 16:51 100.0 107 19 147/84 91 Simple Mask 15.0 02/24/17 15:20 98.4 72 17 118/68 99 Room Air 02/24/17 15:07 72 17 118/68 99 Room Air 02/24/17 13:00 98.4 80 17 119/72 99 Room Air 02/24/17 11:52 98.4 88 18 121/73 99 Room Air Intake and Output 02/25/17 02/26/17 19:00 07:00 Intake Total 555 ml Balance 555 ml Intake Oral 500 ml IV Total 55 ml # Bowel Movements 1 Laboratory Tests Test 02/25/17 10:30 White Blood Count 12.8 K/UL (4.8-10.8) H Red Blood Count 4.17 M/UL (4.70-6.10) L Hemoglobin 13.2 G/DL (14.2-18.0) L Hematocrit 39.1 % (42.0-52.0) L Mean Corpuscular Volume 94 FL (80-99) Mean Corpuscular Hemoglobin 31.6 PG (27.0-31.0) H Mean Corpuscular Hemoglobin Concent 33.7 G/DL (32.0-36.0) Red Cell Distribution Width 11.3 % (11.6-14.8) L Platelet Count 212 K/UL (150-450) Mean Platelet Volume 7.4 FL (6.5-10.1) Neutrophils (%) (Auto) 78.5 % (45.0-75.0) H Lymphocytes (%) (Auto) 10.4 % (20.0-45.0) L Monocytes (%) (Auto) 10.7 % (1.0-10.0) H Eosinophils (%) (Auto) 0.1 % (0.0-3.0) Basophils (%) (Auto) 0.3 % (0.0-2.0) Sodium Level Pending Potassium Level Pending Chloride Level Pending Carbon Dioxide Level Pending Blood Urea Nitrogen Pending Creatinine Pending Estimat Glomerular Filtration Rate Pending Glucose Level Pending Calcium Level Pending Phosphorus Level Pending Magnesium Level Pending Height (Feet): 5 Height (Inches): 4.00 Weight (Pounds): 150 Medications Current Medications Medications (Trade) Dose Ordered Sig/Madai Route PRN Reason Start Time Stop Time Status Last Admin Dose Admin Acetaminophen/ Hydrocodone Bitart ([place] 10/325) 1 ea Q4H PRN ORAL Severe Pain (Pain Scale 7-10) 02/24/17 17:00 03/03/17 16:59 02/25/17 06:33 Acetaminophen/ Hydrocodone Bitart ([place] 5/325) 1 tab Q4H PRN ORAL Moderate Pain (Pain Scale 4-6) 02/24/17 17:00 03/03/17 16:59 Al Hydroxide/Mg Hydroxide (Mylanta) 15 ml Q6H PRN ORAL DYSPEPSIA 02/24/17 17:00 03/26/17 16:59 Diphenhydramine HCl (Benadryl) 12.5 mg Q6H PRN IVP Itching/Pruritis 02/24/17 17:00 03/26/17 16:59 Docusate Sodium (Colace) 100 mg TWICE A DAY ORAL 02/24/17 21:00 03/26/17 20:59 02/25/17 08:26 Heparin Sodium (Porcine) (Heparin 5000 units/ml) 5,000 units EVERY 12 HOURS SUBQ 02/25/17 09:00 03/27/17 08:59 02/25/17 08:35 Hydromorphone HCl (Dilaudid) 0.5 mg Q3H PRN IVP Pain Score 1-3 02/24/17 17:00 03/03/17 16:59 Hydromorphone HCl (Dilaudid) 1 mg Q3H PRN IVP pain score 4-6 02/24/17 17:00 03/03/17 16:59 Hydromorphone HCl (Dilaudid) 2 mg Q3H PRN IVP pain score 7-10 02/24/17 17:00 03/03/17 16:59 Ketorolac Tromethamine (Toradol 30mg) 15 mg Q6H PRN IV Breakthrough Pain 02/24/17 17:00 03/01/17 16:59 Lorazepam (Ativan 2mg/ml 1ml) 1 mg Q4H PRN IV Alcohol Withdrawal Symptoms 02/24/17 20:45 03/03/17 20:44 Lorazepam (Ativan 2mg/ml 1ml) 2 mg DAILYPRN PRN IM Seizure due to Alcohol Withdra 02/24/17 20:45 03/03/17 20:44 Magnesium Hydroxide (Mom) 30 ml BIDPRN PRN ORAL Constipation 02/24/17 17:00 03/26/17 16:59 Ondansetron HCl (Zofran) 4 mg Q6H PRN IVP Nausea & Vomiting 02/24/17 17:00 03/26/17 16:59 Assessment/Plan Status: doing well Assessment/Plan Acute Appendicitis, s/p Lap Appy POD 1 - continue excellent post op mgt - post op abx - mobilization and ambulation - encourage IS - labs reviewed - pain control - supportive care - dispo planning for today - post op instructions provided by surgery DVT PPx: SCDs, HSQ FULL CODE Dispo: home Expected LOS: 0-1 days Time of this note may not reflect the time of the clinical encounter. I spent 65 min on this case and 37 min was dedicated to counseling and care coordination Mane Rudolph MD Feb 25, 2017 11:40
[2017-02-25 12:00] VITALS: BP 111/75
[2017-02-25] MEDS ORDERED: NORCO 5-325 TA1 EACH ORAL (12:32)
[2017-02-25] MEDS ORDERED: SENNA-S TABLET1 EACH PO (12:33)
--- NOTE | 2017-02-25 16:40 | Discharge Summary ---
Discharge Summary Hospital Course Date of Admission Feb 24, 2017 at 19:21 Date of Discharge Feb 25, 2017 at 13:40 Admitting Diagnosis acute appendicitis YG Veliz is a 26 year old male who was admitted on Feb 24, 2017 at 19:21 for Appendicitis Hospital Course 26 yo M w/o sig PMHx who presented to the ED w/ 3 days of progressive RLQ abdominal pain. In the ED pt found to have leukocytosis and peritoneal sings on physical exam. CT A/P confirmed non perforated appendicitis and pt was taken urgently to the OR for laparoscopic appendectomy. Pt tolerated the operation well. He is currently POD 1. Pain is well controlled. Pt is ambulatory. Tolerating PO. Discharge Condition Upon Discharge: stable Discharge Disposition Patient was discharged to Home (01) Discharge Diagnoses: (1) Acute appendicitis with localized peritonitis Discharge Instructions Discharge Instructions Follow up with: PCP and Surgery in 1-2 weeks Diet: regular Activity: as tolerated For Surgical Patients Clean and Dry: surgical site Dressing Care: keep dry and clean Mane Rudolph MD Feb 25, 2017 16:40
--- NOTE | 2017-02-26 11:23 | Diagnostic Imaging Report ---
Indication: PAIN Technique: CT scan of the abdomen and pelvis was performed from the diaphragms to the symphysis pubis with intravenous contrast material only per specific request of the ordering physician.. 5 mm sections were generated. Axial, coronal, and sagittal images are presented. Dose: Total Dose Length Product - DLP [address] Dose Index - CTDIvol(s) 13.21 mGy. Comparison: None Findings: There is some atelectasis the right lung base. The liver is low density. The gallbladder is unremarkable. The spleen is normal. The pancreas is normal. Adrenal glands are unremarkable. The kidneys are normal. Aorta and inferior vena cava are normal caliber. Retroperitoneum is free of adenopathy. The appendix is distended. There is an appendicolith within it.. Appendiceal stranding is noted. There is enhancement of the appendiceal wall. The bladder is normal. Prostate and seminal vesicles are unremarkable. No abnormal fluid collections. Impression: Acute appendicitis. This agrees with preliminary reading. The CT scanner at [facility] is accredited by the [employer] and the scans are performed using protocols designed to limit radiation exposure to as low as reasonably achievable to attain images of sufficient resolution adequate for diagnostic evaluation.
== END 2017-02-25 13:40 | disposition home or self-care (01) | DRG 225 ==
LOC: EMR 11:47 → SUR 15:21 → EMR 15:22 → 3E 19:21
PROC: 0DTJ4ZZ Resection of Appendix, Percutaneous Endoscopic Approach (ICD-10-PCS; principal; 2017-02-24 15:30)
DX: K35.3 Acute appendicitis with localized peritonitis (principal)
CPT/HCPCS: 36415; 71010; 74177; 80048; 80053; 81003; 82248; 83690; 83735; 84100; 85007; 85025; 85610; 85730; 86850; 86900; 86901; 94003; 94150; 99285; J2405; J2710; J3490

== ENCOUNTER 2018-12-24 17:44 | Emergency (ER) | payer MEDICAID, OTHER ==
[~2018-12-24] VITALS: Ht 167.6 cm; Wt 63.5 kg
[~2018-12-24 17:44] MED LIST: NKM; NORCO 5-325 TA1 EACH ORAL; SENNA-S TABLET1 EACH PO
[2018-12-24 17:56] VITALS: BP 120/70
[2018-12-24] MEDS ORDERED: Lidocaine 2% Visc 15ml soln ORAL ONE (18:15)
[2018-12-24] MEDS ORDERED: Mylanta II UD 30ml ORAL ONE (18:15)
[2018-12-24] MEDS ORDERED: Dicyclomine HCl 10mg/5ml oral soln ORAL ONE (18:15)
[2018-12-24 18:23] LABS: BASOPHILS % (AUTO) 2.1 % (0.0-2.0); EOSINOPHILS % (AUTO) 1.7 % (0.0-3.0); HEMATOCRIT 38.6 % (42.0-52.0); HEMOGLOBIN 13.5 G/DL (14.2-18.0); LYMPHOCYTES % (AUTO) 35.9 % (20.0-45.0); MEAN CORPUSCULAR VOLUME 93 FL (80-99); NEUTROPHILS % (AUTO) 48.2 % (45.0-75.0); PLATELET COUNT 364 K/UL (150-450); RED BLOOD COUNT 4.16 M/UL (4.70-6.10); RED CELL DISTRIBUTION WIDTH 11.6 % (11.6-14.8); WHITE BLOOD COUNT 5.3 K/UL (4.8-10.8)
[2018-12-24 18:31] LABS: APPEARANCE,URINE CLEAR; BILIRUBIN, URINE NEGATIVE (NEGATIVE); COLOR,URINE PALE YELLOW; GLUCOSE, URINE (UA) NEGATIVE (NEGATIVE); KETONES,URINE NEGATIVE (NEGATIVE); LEUKOCYTE ESTERASE ,URINE NEGATIVE (NEGATIVE); NITRITE,URINE NEGATIVE (NEGATIVE); PH,URINE 5 (4.5-8.0); PROTEIN,URINE NEGATIVE (NEGATIVE); UROBILINOGEN,URINE NORMAL MG/DL (0.0-1.0)
[2018-12-24 18:46] LABS: ANION GAP 15 mmol/L (5-15); BLOOD UREA NITROGEN 9 mg/dL (7-18); CALCIUM 8.6 MG/DL (8.5-10.1); CARBON DIOXIDE 24 MMOL/L (21-32); CHLORIDE 108 MMOL/L (98-107); CREATININE 0.7 MG/DL (0.55-1.30); POTASSIUM 3.8 MMOL/L (3.5-5.1); SODIUM 147 MMOL/L (136-145)
[2018-12-24 18:51] LABS: ALANINE AMINOTRANSFERASE 662 U/L (12-78); ALBUMIN 3.7 G/DL (3.4-5.0); ALBUMIN/GLOBULIN RATIO 0.9 (1.0-2.7); ALKALINE PHOSPHATASE 193 U/L (46-116); ASPARTATE AMINO TRANSFERASE 572 U/L (15-37); BILIRUBIN,TOTAL 0.3 MG/DL (0.2-1.0)
[2018-12-24 19:17] VITALS: BP 119/58
[2018-12-24] MEDS ORDERED: Isovue-300 100ml vial INJ PRN (19:30)
--- NOTE | 2018-12-24 19:33 | Emergency Room Report ---
History of Present Illness General Chief Complaint: Abdominal Pain Source: Patient Present Illness HPI Disclaimer: Please note that this report is being documented using RNDOMNON technology. This can lead to erroneous entry secondary to incorrect interpretation by the dictating instrument. HPI:28-year-old male with history of appendectomy presents for evaluation of abdominal pain. States symptoms have been present intermittently with a sharp stabbing abdominal pain in the left lower quadrant that comes and goes. Over the past 2 weeks the pain has become constant making it even difficult to walk. Patient states he was unable to get out from a seated position while getting up from his car after work today because of the severe units of the abdominal pain. Denies significant vomiting or diarrhea. Denies hematuria or dysuria. He states the pain is over where the laparoscopic instrumentation was for his appendectomy 2 years ago. He drank a significant amount of alcohol this afternoon to help his pain. States he is not a daily drinker but was only using it for pain control. PMH: Denies PSH: Laparoscopic appendectomy Allergies: Denies Social Hx: Alcohol use Allergies: Coded Allergies: No Known Allergies (Unverified , 02/24/17) Nursing Documentation-PMH Past Medical History: No Stated History Hx Cardiac Problems: No Hx Cancer: No Hx Gastrointestinal Problems: No Hx Neurological Problems: No Review of Systems All Other Systems: negative except mentioned in HPI Physical Exam Vital Signs Date Time Temp Pulse Resp B/P (MAP) Pulse Ox O2 Delivery O2 Flow Rate FiO2 12/24/18 17:32 98.2 80 18 120/70 (87) 99 Room Air General: Awake and alert, appears intoxicated uncomfortable HEENT: NC/AT. EOMI. moist mucous membranes Cardiovascular: RRR. S1 and S2 normal. No murmur appreciated Resp: Normal work of breathing. No cough, wheezing or crackles appreciated Abdomen: Abdomen is soft, nondistended. Tender palpation left lower quadrant. No upper quadrant tenderness or epigastric tenderness. No rebound. Negative Rovsing's. Negative Mike's. Skin: Intact. No abrasions, laceration or rash over the exposed skin. Laparoscopic surgical sites are clean dry and intact and well-healed MSK: Normal tone and bulk. Moving all extremities. No obvious deformity. Neuro: Awake and alert. Mentating appropriately. Medical Decision Making Diagnostic Impression: Primary Impression: Abdominal pain Additional Impressions: Alcohol intoxication Abnormal liver function test ER Course year-old male presents for evaluation of 6 months left lower quadrant abdominal pain that acutely worsened over the past 2 weeks and became unbearable today. Differential includes but is not limited to intra-abdominal abscess, bowel obstruction, postsurgical complication, diverticulitis. Will obtain labs and a CT scan of the abdomen. Laboratory Tests Test 12/24/18 18:13 12/24/18 18:15 White Blood Count 5.3 K/UL (4.8-10.8) Red Blood Count 4.16 M/UL (4.70-6.10) L Hemoglobin 13.5 G/DL (14.2-18.0) L Hematocrit 38.6 % (42.0-52.0) L Mean Corpuscular Volume 93 FL (80-99) Mean Corpuscular Hemoglobin 32.4 PG (27.0-31.0) H Mean Corpuscular Hemoglobin Concent 34.9 G/DL (32.0-36.0) Red Cell Distribution Width 11.6 % (11.6-14.8) Platelet Count 364 K/UL (150-450) Mean Platelet Volume 5.6 FL (6.5-10.1) L Neutrophils (%) (Auto) 48.2 % (45.0-75.0) Lymphocytes (%) (Auto) 35.9 % (20.0-45.0) Monocytes (%) (Auto) 12.0 % (1.0-10.0) H Eosinophils (%) (Auto) 1.7 % (0.0-3.0) Basophils (%) (Auto) 2.1 % (0.0-2.0) H Sodium Level 147 MMOL/L (136-145) H Potassium Level 3.8 MMOL/L (3.5-5.1) Chloride Level 108 MMOL/L (98-107) H Carbon Dioxide Level 24 MMOL/L (21-32) Anion Gap 15 mmol/L (5-15) Blood Urea Nitrogen 9 mg/dL (7-18) Creatinine 0.7 MG/DL (0.55-1.30) Estimate Glomerular Filtration Rate > 60 mL/min (>60) Glucose Level 116 MG/DL (74-106) H Calcium Level 8.6 MG/DL (8.5-10.1) Total Bilirubin 0.3 MG/DL (0.2-1.0) Aspartate Amino Transferase (AST) 572 U/L (15-37) H Alanine Aminotransferase (ALT) 662 U/L (12-78) H Alkaline Phosphatase 193 U/L (46-116) H Total Protein 7.9 G/DL (6.4-8.2) Albumin 3.7 G/DL (3.4-5.0) Globulin 4.2 g/dL Albumin/Globulin Ratio 0.9 (1.0-2.7) L Lipase 173 U/L (73-393) Urine Color Pale yellow Urine Appearance Clear Urine pH 5 (4.5-8.0) Urine Specific [place] 1.010 (1.005-1.035) Urine Protein Negative (NEGATIVE) Urine Glucose (UA) Negative (NEGATIVE) Urine Ketones Negative (NEGATIVE) Urine Blood Negative (NEGATIVE) Urine Nitrite Negative (NEGATIVE) Urine Bilirubin Negative (NEGATIVE) Urine Urobilinogen Normal MG/DL (0.0-1.0) Urine Leukocyte Esterase Negative (NEGATIVE) Reevaluation Time: 23:00 Last Vital Signs Date Time Temp Pulse Resp B/P (MAP) Pulse Ox O2 Delivery O2 Flow Rate FiO2 12/24/18 19:17 98.1 74 21 119/58 95 Room Air Reevaluation Impression Labs show no significant white count but are concerning for elevated LFTs and alkaline phosphatase. Urine is noninfectious. CT scan of the abdomen did show some congestion around the liver and some questionable edema. A ultrasound of the right upper quadrant was obtained showing similar findings. At this time, does not appear that he has acute cholecystitis, no stones are visualized, gallbladder wall thickness was within normal limits and the patient has no pain in the right upper quadrant. Clinically, he is now sober and stable for outpatient follow-up. He will require close follow-up with his PMD and repeat testing as his LFTs. I also discussed with him the importance of getting tested for hepatitis and other liver diseases by his doctor. He has been in given a list of providers in the area taking new patients. We discussed reasons to return to the emergency department. He understands and agrees with this treatment plan was discharged home. Condition: Improved Scripts Dicyclomine Hcl (DICYCLOMINE HCL) 20 Mg Tablet 20 MG PO TID for 5 Days, #15 TAB Prov: Zach Zambrano MD 12/24/18 Zach Zambrano MD Dec 24, 2018 19:33
--- NOTE | 2018-12-24 20:20 | Diagnostic Imaging Report ---
Clinical Indication: Abdominal pain, history of appendectomy Technique: No oral contrast utilized, per emergency room physician request IV administration nonionic contrast. Venous phase spiral acquisition obtained through the abdomen and pelvis. Multiplanar reconstructions were generated. Total dose length product 475.3 mGycm. CTDIvol(s) 9.2 mGy. Dose reduction achieved using automated exposure control Comparison: 02/24/2017 Findings: Interim appendectomy. There is a surgical staple line in place. No abnormalities of the surgical bed demonstrated. There are a few prominent pericecal nodes. There are a few colonic diverticula. No evidence of diverticulitis. Small bowel loops are somewhat fluid-filled and prominent, but no lashon small bowel distention demonstrated. Distal esophagus, stomach, duodenum are unremarkable. The liver demonstrates suggestion of mild periportal edema. The gallbladder, bile ducts, pancreas, spleen, adrenals, kidneys are unremarkable. There is mild bladder wall thickening. This is also evident previously. There are some atelectatic changes at the right lung base. The bones are unremarkable Impression: Mild bladder wall thickening, similar to prior study, likely baseline for this patient but the possibility of cystitis should be considered No acute abnormality otherwise Mild periportal edema, nonspecific Prior appendectomy Colonic diverticulosis. No evidence of diverticulitis Incidental finding minimal right basilar pulmonary atelectatic changes This essentially agrees with the preliminary interpretation provided overnight by [facility], with minor variation. The CT scanner at [facility] is accredited by the [employer] and the scans are performed using protocols designed to limit radiation exposure to as low as reasonably achievable to attain images of sufficient resolution adequate for diagnostic evaluation.
[2018-12-24 21:00] VITALS: BP 117/82
--- NOTE | 2018-12-24 22:47 | Diagnostic Imaging Report ---
Indication: Right upper quadrant pain Technique: Tirado-scale and duplex images of the upper abdomen were obtained Comparison: No comparison sonograms. Reference made to CT scan of earlier the same day Findings: Gallbladder demonstrates apparent pericholecystic edema along the cholecystic hepatic interface. Also demonstrated on prior CT scan. No stones Sonographic Mike's sign is negative. Common bile duct measures 3 mm in diameter. No intrahepatic biliary ductal dilatation. Liver demonstrates normal echogenicity, no focal abnormality. Portal vein and hepatic veins are patent. Pancreas is obscured by bowel gas. Spleen is unremarkable. Left kidney measures 10 cm in length. Right kidney measures 9.3 cm length. Both kidneys demonstrate normal echogenicity. There is no hydronephrosis. No focal abnormality . Non-aneurysmal abdominal aorta . Impression: Apparent pericholecystic edema, likely related to periportal edema demonstrated on recent CT scan. Possibility of acalculous acute cholecystitis should also be considered, however. Consider nuclear medicine hepatobiliary scan for further evaluation if there is high clinical suspicion Negative for dilated bile ducts Note inability to visualize the pancreas
[2018-12-24] MEDS ORDERED: DICYCLOMINE HCL20 M1 PO (22:57)
[2018-12-24 23:03] VITALS: BP 106/69
[2018-12-24 23:09] VITALS: BP 106/69
== END 2018-12-24 23:09 | disposition home or self-care (01) ==
LOC: EDBD 17:44 → EMR 18:15
DX: R10.9 Unspecified abdominal pain (principal); F10.129 Alcohol abuse with intoxication, unspecified; R79.89 Other specified abnormal findings of blood chemistry
CPT/HCPCS: 36415; 74177; 76700; 80053; 81003; 83690; 85025; 96361; 96374; 99284; J2405; Q9967